=== PATIENT | male | born 1990 | race Caucasian/White ===

== ENCOUNTER 2019-07-03 07:59 | Day surgery (SDC) | payer OTHER ==
[~2019-07-03] VITALS: Ht 182 cm; Wt 134.0 kg
[2019-07-03] VITALS (13 sets, daily range): BP systolic 110–152; BP diastolic 41–92
[2019-07-03] MEDS ORDERED: NS IV 1000 ML 1,000 ML IV ONE (08:05)
[2019-07-03] MEDS ORDERED: LIDOCAINE 1% INJ 20 ML 20 ML VIAL ONE (08:07)
[2019-07-03] MEDS ORDERED: HEParin (CATH LAB) 1,000 ML IV ONE (08:07)
[2019-07-03] MEDS ORDERED: NS IV 1000 ML 1,000 ML ONE (08:07)
[2019-07-03] MEDS ORDERED: VANCOMYCIN INJECTION 1,000 MG in NS (IVPB) 250 ML IV ONE (08:15)
[2019-07-03] MEDS ORDERED: BACITRACIN INJECTION 50,000 UNIT, SODIUM CHLORIDE 0.9% IRRIGATIO 500 ML IR ONE ×2 (08:15)
[2019-07-03] MEDS ORDERED: NS IV 1000 ML 1,000 ML IV SCH (08:15)
[2019-07-03] MEDS ORDERED: ALBU90AE2 IH (08:57)
[2019-07-03] MEDS ORDERED: LEVO175T5 PO (08:57)
[2019-07-03 08:58] LABS: HEMOGLOBIN 16.4 G/DL (13.3-17.7); MEAN PLATELET VOLUME 10.9 FL (7.4-10.4); RED CELL DISTRIBUTION WIDTH 13.8 % (10.0-14.5); WHITE BLOOD COUNT 8.3 10^3/uL (4.3-11.0)
[2019-07-03] MEDS ORDERED: FLU QUADRIvalent (5+ YOA) 2019-2020 (AFLURIA) 0.5 ML IM ONE (09:15)
[2019-07-03 09:17] LABS: ALBUMIN 4.5 GM/DL (3.2-4.5); BILIRUBIN,TOTAL 0.7 MG/DL (0.1-1.0); CALCIUM 9.8 MG/DL (8.5-10.1); CREATININE SERUM 1.42 MG/DL (0.60-1.30); PROTHROMBIN TIME PATIENT 13.2 SEC (12.2-14.7); TOTAL PROTEIN 7.6 GM/DL (6.4-8.2)
[2019-07-03] MEDS ORDERED: MIDAZOLAM 5 MG/5 ML (VERSED) VIAL ONE (10:42)
[2019-07-03] MEDS ORDERED: fentaNYL INJECTION 100 MCG/2 ML AMP ONE ×2 (10:43→11:34)
--- NOTE | 2019-07-03 10:44 | Cardiac Procedure Note-CS/ASA ---
Pre-Procedure Note Pre-Op Procedure Note H&P Reviewed The H&P was reviewed, patient examined and no changes noted. Date H&P Reviewed: Jul 03, 2019 Time H&P Reviewed: 10:43 Conscious Sedation Pre-Proced Time 10:43 ASA Score 2 For ASA 3 and 4: Consider anesthesia and medical clearance. Also, for patients with a history of failed moderate sedation consider anesthesia. Airway Lungs Heart ASA score ASA 1: a normal healthy patient ASA 2: a patient with a mild systemic disease (mid diabetes, controlled hypertension, obesity ASA 3: a patient with a severe systemic disease that limits activity (angina, COPD, prior Myocardial infarction) ASA 4: a patient with an incapacitating disease that is a constant threat to life (CHF, renal failure) ASA 5: a moribund patient not expected to survive 24 hrs. (ruptured aneurysm) ASA 6: a declared brain- patient whose organs are being harvested. For emergent operations, add the letter E after the classification Mallampati Classification Grade 2 Sedation Plan Analgesia, Amnesia, Plan communicated to team members, Discussed options with patient/fam, Discussed risks with patient/fam The patient is an appropriate candidate to undergo the planned procedure, sedation, and anesthesia. The patient immediately re-assessed prior to indication. KOBE STREETER MD FACP FAC CCDS Jul 03, 2019 10:44
[2019-07-03] MEDS ORDERED: DOXY100C2 PO (12:09)
--- NOTE | 2019-07-03 12:11 | Discharge Inst-Cardiology ---
Discharge Inst-Cardiac Discharge Medications New Medications: Doxycycline Hyclate (Doxycycline Hyclate) 100 Mg Capsule 100 MG PO DAILY for 5 Days, #5 CAP Continued Medications: Albuterol Sulfate (Proair Digihaler) 90 Mcg Aer.pw.bas 90 MCG IH Q6H Levothyroxine Sodium (Levothyroxine Sodium) 175 Mcg Tablet 175 MCG PO DAILY, TAB Patient Instructions Patient Instructions: F/u at Dr Hernandez for wound check on 07/06/19 F/u at Dr Hernandez for doctor visit in 2 weeks Orders-Post D/C & Referrals Pneu Vac Indicated: Yes KOBE STREETER MD FACP FACC CCDS Jul 03, 2019 12:11
[2019-07-03] MEDS ORDERED: PATIENT MAY USE OWN MEDS, ALL PO SCH (12:15)
[2019-07-03] MEDS ORDERED: ACETAMINOPHEN 500 MG TAB (TYLENOL) PO PRN (12:15)
[2019-07-03] MEDS: NS IV 1000 ML 1,000 ML IV SCH ×2 (12:52→13:56)
--- NOTE | 2019-07-03 14:26 | OPERATIVE REPORT ---
DATE OF SERVICE: 07/03/2019 PREOPERATIVE DIAGNOSIS: Dual chamber pacemaker at elective replacement indicator (originally placed at [facility], for profound bradycardia). POSTOPERATIVE DIAGNOSIS: Dual chamber pacemaker at elective replacement indicator (originally placed at [facility], for profound bradycardia). PROCEDURE: Pulse generator change. ESTIMATED BLOOD LOSS: Less than 20 mL. DESCRIPTION OF PROCEDURE: The patient was brought to the cardiac catheterization laboratory. The left prepectoral area is the site of pacemaker implantation. This was prepared and draped in the usual sterile fashion. Fluoroscopy was used to determine the site of the pacemaker. Sharp and blunt dissection was used to open the pocket. The pacemaker was removed from the pocket and had detached from the leads and a new pacemaker attached to the old leads. Good sensing and capture thresholds were obtained. The pocket was thoroughly irrigated with an antibiotic solution. Good hemostasis was assured. The pacemaker was placed in a TYRX envelop and then placed back in the pacemaker pocket and the pocket was closed in two layers using 3-0 Vicryl. He tolerated the procedure well. The newly implanted pacemaker today is Medtronic model [id number] with serial number [id number]. Job ID: [id number] DocumentID: [id number] Dictated Date: 07/03/2019 12:01:46 Prizer Hand Date: 07/03/2019 14:25:07 Dictated By: KOBE STREETER MD, MA, FACP, FACC, MTDD
--- NOTE | 2019-07-03 14:32 | Diagnostic Imaging Report ---
INDICATION: Arrhythmia Portable chest 2:04 PM There is a dual-chamber pacemaker. Heart size and pulmonary vascularity are normal. Lungs are clear. There are no effusions or pneumothoraces. IMPRESSION: No acute abnormalities in the chest. Dictated by: Dictated on workstation # [id number]
== END 2019-07-03 18:00 | disposition home or self-care (01) ==
LOC: CATH 07:59 → SDC 12:33 → CATH 18:00
PROVIDERS: ATTEND Internal Medicine Cardiovascular Disease
DX: Z45.018 Encounter for adjustment and management of other part of cardiac pacemaker (principal); I95.9 Hypotension, unspecified; E66.9 Obesity, unspecified; Z91.048 Other nonmedicinal substance allergy status; Z87.891 Personal history of nicotine dependence; Z91.14 Patient's other noncompliance with medication regimen; Z88.5 Allergy status to narcotic agent; Z88.1 Allergy status to other antibiotic agents; Z88.8 Allergy status to other drugs, medicaments and biological substances; Z79.899 Other long term (current) drug therapy; Z68.41 Body mass index [BMI] 40.0-44.9, adult; Z83.3 Family history of diabetes mellitus; Z82.49 Family history of ischemic heart disease and other diseases of the circulatory system
CPT/HCPCS: 33228; 36415; 71045; 80053; 80061; 85027; 85610; 85730; 87081